=== PATIENT | female | born 1965 | race Caucasian/White ===

== ENCOUNTER 2018-01-18 12:39 | Emergency (ER) | payer BC ==
[2018-01-18] MEDS ORDERED: MIDAZOLAM HCL 2 MG/2 ML SINGLE DOSE VIAL IVPUSH ONE (12:44)
[2018-01-18] MEDS ORDERED: SODIUM CHLORIDE 1,000 ML IV STA (12:44)
[2018-01-18] MEDS ORDERED: ADENOSINE 6 MG/2 ML VIAL IVPUSH ONE ×3 (12:44→12:50)
[2018-01-18] MEDS ORDERED: MIDAZOLAM HCL 2 MG/2 ML SINGLE DOSE VIAL ONE (12:47)
--- NOTE | 2018-01-18 12:56 | PDOC ---
History of Present Illness - General Chief Complaint: Palpitations Stated Complaint: HEART RACING Time Seen by Provider: 01/18/18 12:43 History Source: Patient Exam Limitations: No Limitations - History of Present Illness Initial Comments: 01/18/18 12:57 52 YOF with h/o Sjogren's, SVT on metoprolol presenting with acute onset of dull CP and palpitations, dizziness and nausea x 30 minutes since 1230pm. occurred at rest while she was getting ready in car. no recent illnesses, cough , congestion, sob, headache or vomiting/diarrhea. did not eat much this morning for breakfast. has been on metoprolol by her boring inspector, 25mg daily prescribed but not taken x 3 days due to side effect profile and making her feel unwell. in addition, when she was taking her metoprolol, only taking 12.5mg daily. [employer] Dr. Freddie Jeffrey - [facility] 01/18/18 12:59 01/18/18 13:19 Past History - Past Medical History Allergies/Adverse Reactions: Allergies Allergy/AdvReac Type Severity Reaction Status Date / Time No Known Allergies Allergy Unverified 01/18/18 12:41 Home Medications: Ambulatory Orders Metoprolol Tartrate 25 mg PO DAILY 01/18/18 Review of Systems - Review of Systems Able to Perform ROS?: Yes Comments:: 01/18/18 13:01 GENERAL/CONSTITUTIONAL: No fever or chills. No weakness. HEAD, EYES, EARS, NOSE AND THROAT: No change in vision or hearing. CARDIOVASCULAR: +chest pain or palpitations, no syncope or edema. RESPIRATORY: No SOB, cough, wheezing, or hemoptysis. GASTROINTESTINAL +nausea and heartburn. No abd pain or vomiting. No diarrhea or constipation. No bloody stools. MUSCULOSKELETAL: No joint or muscle swelling or pain. No neck or back pain. SKIN: No rash or changes in skin color or lesions. NEUROLOGIC: No headache, vertigo, loss of consciousness, or change in strength/ sensation. HEMATOLOGIC/LYMPHATIC: No anemia, easy bruising/bleeding, or history of blood clots. ALLERGIC/IMMUNOLOGIC: No allergies All other systems reviewed and negative, or as documented in HPI. *Physical Exam - Vital Signs Last Vital Signs Temp Pulse Resp BP Pulse Ox 69 20 112/88 100 01/18/18 18:04 01/18/18 18:04 08/29/18 18:04 01/18/18 18:04 - Physical Exam Comments: 01/18/18 13:02 General: in Moderate distress, 2/2 palp. awake, alert, speaking. HEENT: NCAT, PERRL, EOMI, clear conjunctiva, anicteric, moist mucus membranes, clear oropharynx, no oral lesions.. Neck: neck supple, FROM Resp: CTAB, normal and even respirations, no respiratory distress CVS: +very tachycardic. 2+ peripheral pulses throughout, no peripheral edema Abdomen: soft, NTND, no peritoneal signs. Back: nontender, normal inspection and ROM MSK: no edema, RO x4, ROM intact. No clubbing or cyanosis. normal bulk and tone. no calf tenderness. Neuro: alert, oriented appropriately Skin: warm and well perfused, cap refill <2 sec, normal color Heart Score/ECG Review - ECG Impressions Normal ECG: No Comment:: 01/18/18 13:08 EKG with initial SVT with rate in 170-200s, with diffuse ST depressions that are rate related. normal narrow QRS complexes. Repeat EKG after adenosine and fluids/versed --> NSR with TWF in III, normal narrow QRS and intervals, no segment elevations or depressions to suggest ongoing ischemia. ED Treatment Course - LABORATORY CBC & Chemistry Diagram: 01/18/18 12:40 01/18/18 12:45 - ADDITIONAL ORDERS Additional order review: Laboratory Results 01/18/18 01/18/18 01/18/18 17:58 15:34 12:45 PT with INR INR Sodium Potassium Chloride Carbon Dioxide Anion Gap BUN Creatinine Creat Clearance w eGFR Random Glucose Calcium Magnesium Total Bilirubin AST ALT Alkaline Phosphatase Troponin I 0.07 H 0.07 H < 0.03 Total Protein Albumin TSH 01/18/18 01/18/18 12:45 12:45 PT with INR 10.3 INR 0.92 L Sodium 134 L Potassium 3.1 L Chloride 100 Carbon Dioxide 24 Anion Gap 10 BUN 14 Creatinine 0.8 Creat Clearance w eGFR > 60 Random Glucose 123 H Calcium 9.7 Magnesium 1.9 Total Bilirubin 1.1 H AST 35 ALT 37 Alkaline Phosphatase 74 Troponin I Total Protein 8.5 H Albumin 4.7 TSH 2.43 01/18/18 12:40 RBC 4.29 MCV 97.0 H MCHC 33.2 RDW 12.1 MPV 8.5 Neutrophils % 46.6 Lymphocytes % 36.7 Monocytes % 13.2 H Eosinophils % 3.1 Basophils % 0.4 - RADIOLOGY Radiology Studies Ordered: Category Date Time Status CHEST X-RAY PORTABLE* [RAD] Stat Radiology 01/18/18 12:45 Completed - Medications Given in the ED: ED Medications Discontinued Medications Generic Name Dose Route Start Last Admin Trade Name Radha PRN Reason Stop Dose Admin Adenosine 6 mg 01/18/18 12:44 01/18/18 12:54 Adenocard - IVPUSH 01/18/18 12:45 6 mg ONCE ONE Administration Sodium Chloride 1,000 mls @ 1,000 mls/hr 01/18/18 12:44 01/18/18 12:46 Normal Saline - IV 01/18/18 13:43 1,000 mls/hr ASDIR STA Administration Midazolam HCl 2 mg 01/18/18 12:44 01/18/18 12:52 Versed - IVPUSH 01/18/18 12:45 2 mg ONCE ONE Administration Potassium Chloride 40 meq 01/18/18 13:36 01/18/18 13:52 K-Dur - PO 01/18/18 13:37 40 meq ONCE ONE Administration Medical Decision Making - Medical Decision Making 01/18/18 13:04 52 YOF with h/o SVT on metoprolol and Sjogren's presenting with CP, palp, dizziness and nausea. found to be in SVT. DDx. SVT, AVNRT, arrhythmia, ACS, angina, hyperthyroid, electrolyte/metabolic derangements. considered but clinically doubt DVT/PE or dissection. Vital signs reviewed, initially hypertensive and tachy to 200s. on repeat 106/80 with rate persistently in the 200s. pt self attempted valsalva with initial improvement but recurrence of SVT in 200s. Planned for: CBC, CMP, TSH, trop, EKG, CXR and meds (adenosine, versed), IVF EKG with initial SVT with rate in 170-200s, with diffuse ST depressions that are rate related. normal narrow QRS complexes. Repeat EKG after adenosine 6mg IV x1 and fluids/versed 2mg for anxiolysis --> NSR with TWF in III, normal narrow QRS and intervals, no segment elevations or depressions to suggest ongoing ischemia. continuing to monitor on telemetry and no further events - remained well, ambulated, asymptomatic and normalized VS. - potassium repleted, tolerating oral intake. remainder of labs and lytes wnl. , EKG remains sinus rhythm. HD stable on telemetry w/o events. - monitored closely in the department x 4 hours, no events. feels improved, HD stable and normal sats, HR in 60-70s. - however in the ED had elevated troponin x2 elevated up to 0.07, with normal EKG w/o ischemic findings now, back to sinus rhythm. trop elevated most likely from demand and her high HR in 200s/SVT episode earlier today in the afternoon. offered admission to telemetry, but declined and wishes to go home and will DC Against medical advice. called to personal boring inspector Dr. Freddie Jeffrey at 120pm, will see in the office tomorrow for urgent followup and discussion of next step. will discuss further management and med compliance, to resume metoprolol 25mg orally daily, took that dose today already. AMA - risks and benefits, indication for admit discussed. pt verbalizes understanding, has capacity. understands risks including , disability, coma, NE, stroke, arrhythmia, dehydration, electrolyte abnormalities, infection, etc... AMA, return precautions discussed, but close followup with doctor tomorrow morning/boring inspector. 01/18/18 19:19 01/18/18 19:22 *DC/Admit/Observation/Transfer Diagnosis at time of Disposition: Palpitations, SVT (supraventricular tachycardia) - Discharge Dispostion Disposition: AGAINST MEDICAL ADVICE Condition at time of disposition: Good Decision to Admit order: Yes - Referrals Referrals: Freddie Jeffrey [Non Staff, Medical] - - Patient Instructions Printed Discharge Instructions: DI for Paroxysmal Supraventricular Tachycardia , DI for Chest Pain Additional Instructions: you have elected to leave against medical advice for observation telemetry admission for your elevated troponin and stress marker for your heart. Please follow up with your boring inspector, Dr. Freddie Jeffrey at 930am tomorrow, will see in the office tomorrow for urgent followup and discussion of next step. will discuss further management and medication compliance, resume metoprolol 25mg orally daily, for tomorrow as you took your dose of medication today. you were given a dose of adenosine for your arrhythmia, now you have been back to your normal rhythm. keep well hydrated. your potassium was repleted too, drink tomato juice, green leafy vegetables and bananas. you have been provided copies of your EKGs, please review with your doctor. your metoprolol can also lower your blood pressure, so make sure you eat and stay hydrated. worsening symptoms to monitor for include chest pain, shortness of breath, passing out, dehydration, sweats, lethargy, confusion, weakness or numbness/ tingling or other worsening concerns. Discussion at the bedside with patient and family. Pt has capacity to make medical decisions. Discussed indications for treatment and admission, management plan, risks and benefits. There is no evidence of psychosis, altered mental status or intoxication. Pt understands the nature of condition and treatment plan, including potential risks but not limited to: cardiac arrest, severe infection, dehydration, myocardial infarction, stroke, respiratory failure, coma, severe disability and . Pt will be treated with metoprolol your home medication and close follow up with primary care doctor with reevaluation. Return precautions advised, call [phone] immediately if severe life threatening symptoms or concerns.. Pt has verbalized understanding of information provided, questions answered. - Post Discharge Activity
[2018-01-18 13:00] LABS: BASO % 0.4 % (0-2.0); EOS % 3.1 % (0-4.5); HEMATOCRIT 41.6 % (32.4-45.2); HEMOGLOBIN 13.8 GM/dl (10.7-15.3); LYMPH % 36.7 % (8-40); MCH 32.2 pg (25.7-33.7); MCHC 33.2 g/dl (32.0-36.0); MEAN PLT VOLUME 8.5 fl (7.5-11.1); MONO % 13.2 % (3.8-10.2); NEUT % 46.6 % (42.8-82.8); PLATELET COUNT 279 K/MM3 (134-434); RBC 4.29 M/mm3 (3.60-5.2); RDW 12.1 % (11.6-15.6); WHITE BLOOD COUNT 4.6 K/mm3 (4.0-10.8)
[2018-01-18 13:06] LABS: INR 0.92 (0.82-1.09); PROTHROMBIN TIME (PATIENT) 10.3 SEC (10.2-13.0)
[2018-01-18 13:09] VITALS: BMI 24.0
[2018-01-18 13:10] LABS: ALBUMIN 4.7 g/dl (3.5-5.0); ALK PHOS 74 U/L (32-92); ANION GAP 10 MMOL/L (8-16); BILIRUBIN,TOTAL 1.1 mg/dl (0.2-1.0); BLOOD UREA NITROGEN 14 mg/dl (7-18); CALCIUM 9.7 mg/dl (8.4-10.2); CHLORIDE 100 mmol/L (98-107); CO2 24 mmol/L (22-28); CREATININE 0.8 mg/dl (0.6-1.3); GLUCOSE,RANDOM 123 mg/dl (74-106); MAGNESIUM 1.9 mg/dL (1.8-2.4); POTASSIUM 3.1 mmol/L (3.5-5.1); SGOT/AST 35 U/L (10-42); SGPT/ALT 37 U/L (10-40); SODIUM 134 mmol/L (136-145); TOT PROT 8.5 g/dl (6.4-8.3)
[2018-01-18] MEDS ORDERED: POTASSIUM CHLORIDE TABS 20 MEQ TABLET.ER (FP) PO ONE ×2 (13:36→13:52)
[2018-01-18 19:20] VITALS: BP 104/68; PULSE 68
--- NOTE | 2018-01-19 11:55 | EKG ---
Test Reason : Blood Pressure : / mmHG Vent. Rate : 177 BPM Atrial Rate : 178 BPM P-R Int : 000 ms QRS Dur : 080 ms QT Int : 264 ms P-R-T Axes : 000 048 260 degrees QTc Int : 453 ms POOR DATA QUALITY, INTERPRETATION MAY BE ADVERSELY AFFECTED SUPRAVENTRICULAR TACHYCARDIA MARKED ST ABNORMALITY, POSSIBLE INFERIOR SUBENDOCARDIAL INJURY ABNORMAL ECG NO PREVIOUS ECGS AVAILABLE Confirmed by CARLOS TEE, CARLOS MANUEL ([id number]) on 01/19/2018 11:55:23 AM Referred By: MICKIE GOLDMAN Confirmed By:CARLOS MANUEL GONZALEZ MD
--- NOTE | 2018-01-19 11:55 | EKG ---
Test Reason : Blood Pressure : / mmHG Vent. Rate : 097 BPM Atrial Rate : 097 BPM P-R Int : 176 ms QRS Dur : 082 ms QT Int : 338 ms P-R-T Axes : 046 027 038 degrees QTc Int : 429 ms NORMAL SINUS RHYTHM NONSPECIFIC ST ABNORMALITY ABNORMAL ECG WHEN COMPARED WITH ECG OF 18-JAN-2018 12:44, VENT. RATE HAS DECREASED BY [address] NO LONGER DEPRESSED IN INFERIOR LEADS ST LESS DEPRESSED IN ANTERIOR LEADS T WAVE INVERSION NO LONGER EVIDENT IN INFERIOR LEADS T WAVE INVERSION NO LONGER EVIDENT IN LATERAL LEADS Confirmed by CARLOS TEE, CARLOS MANUEL ([id number]) on 01/19/2018 11:55:09 AM Referred By: MICKIE GOLDMAN Confirmed By:CARLOS MANUEL GONZALEZ MD
--- NOTE | 2018-01-23 14:16 | EKG ---
Test Reason : Blood Pressure : / mmHG Vent. Rate : 063 BPM Atrial Rate : 063 BPM P-R Int : 180 ms QRS Dur : 090 ms QT Int : 388 ms P-R-T Axes : 044 027 032 degrees QTc Int : 397 ms NORMAL SINUS RHYTHM NORMAL ECG WHEN COMPARED WITH ECG OF 18-JAN-2018 12:56, VENT. RATE HAS DECREASED BY [address] NO LONGER DEPRESSED IN LATERAL LEADS Confirmed by MALIKA ARSHAD MD ([id number]) on 01/23/2018 2:16:44 PM Referred By: MD GOLDMAN Confirmed By:MALIKA ARSHAD MD
== END 2018-01-18 19:26 | disposition left against medical advice (07) ==
LOC: FER 12:39
PROC: 3E033GC Introduction of Other Therapeutic Substance into Peripheral Vein, Percutaneous Approach (ICD-10-PCS; principal; 2018-01-18)
PROC: 3E0337Z Introduction of Electrolytic and Water Balance Substance into Peripheral Vein, Percutaneous Approach (ICD-10-PCS; 2018-01-18)
DX: I47.1 Supraventricular tachycardia (principal); R00.2 Palpitations
CPT/HCPCS: 36415; 71045-TC-FY; 80053; 83735; 84443; 84484; 85025; 85610; 93005; 99285-25; J7030